=== PATIENT | female | born 1995 | race Caucasian/White ===

== ENCOUNTER 2016-12-17 18:29 | Emergency (ER) | payer OTHER ==
--- NOTE | 2016-12-17 19:12 | RADIOLOGY REPORT (SQ) ---
EXAM DESCRIPTION: ANKLE LEFT COMPLETE COMPLETED DATE/TIME: 12/17/2016 7:01 pm REASON FOR STUDY: pain COMPARISON: None. NUMBER OF VIEWS: Three views. TECHNIQUE: AP, lateral, and oblique radiographic images acquired of the left ankle. LIMITATIONS: None. FINDINGS: MINERALIZATION: Normal. BONES: No acute fracture or dislocation. No worrisome bone lesions. Minimal posterior and plantar c alcaneal spurring. JOINTS: No effusions. SOFT TISSUES: No soft tissue swelling. No foreign body. OTHER: No other significant finding. IMPRESSION: MINIMAL CALCANEAL SPURRING. NO ACUTE OSSEOUS ABNORMALITY. TECHNICAL DOCUMENTATION: JOB ID: [id number] [employer]- All Rights Reserved
--- NOTE | 2016-12-17 19:54 | ER Document Report ---
ED Extremity Problem, Lower - General Chief Complaint: Ankle Pain Stated Complaint: LEFT ANKLE PAIN Time Seen by Provider: 12/17/16 18:43 TRAVEL OUTSIDE OF THE [place] IN LAST 30 DAYS: No - HPI Patient complains to provider of: Pain Location: Ankle Occurred: Other - one month Onset/Duration: Persistent Quality of pain: Achy Severity: Moderate Context: Twisted - her ankle one month ago Recent injury: No Associated symptoms: denies: Chest pain, Chills, Dizzy, Fainting, Fever, [place] a crack, [place] a pop, Hurts to breath, Painful ambulation, Rapid heart rate, Seizure, Short of breath, Sweaty, Unable to bear weight, Weak, Other Exacerbated by: Walking Notes: has not been taking anything for pain - Related Data Allergies/Adverse Reactions: No Known Allergies Allergy (Verified 12/17/16 19:17) Home Medications: Current Home Medications Buspirone HCl [Buspirone HCl] 1 tab PO DAILY 12/17/16 [History] Duloxetine HCl [Cymbalta 20 Mg Capsule.Dr] 20 mg PO DAILY 12/17/16 [History] Zolpidem Tartrate [Ambien 5 mg Tablet] 1 tab PO DAILY PRN 12/17/16 [History] Past Medical History - Social History Smoking Status: Never Smoker Frequency of alcohol use: None Drug Abuse: None Family History: Reviewed & Not Pertinent Renal/ Medical History: Denies: Hx Peritoneal Dialysis Psychiatric Medical History: Reports: Hx Depression Past Surgical History: Reports: Hx Appendectomy, Hx Section, Hx Cholecystectomy Review of Systems - Review of Systems Constitutional: No symptoms reported Musculoskeletal: See HPI -: Yes All other systems reviewed and negative Physical Exam - Vital signs Vitals: Temp Pulse Resp BP Pulse Ox 98.6 F 96 16 134/77 H 98 12/17/16 18:31 12/17/16 18:31 12/17/16 18:31 12/17/16 18:31 12/17/16 18:31 - General General appearance: Appears well, Alert In distress: None - Cardiovascular Pulses: Normal: Posterior tibial, Dorsalis pedis Normal capillary refill: Yes - Extremities Calf: Normal, Nontender Ankle: Normal, Tender - medial and lateral malleoli. No: Abrasion, Deformity, Ecchymosis, Edema, Instability, Laceration, Limited ROM, Positive Lin's test, Unable to bear weight Foot: Normal, Nontender. No: Unable to bear weight - Neurological Neuro grossly intact: Yes Cognition: Normal Orientation: AAOx4 Sukumar Coma Scale Eye Opening: Spontaneous Sukumar Coma Scale Verbal: Oriented [place] Coma Scale Motor: Obeys Commands [place] Coma Scale Total: 15 - Skin Skin Temperature: Warm Skin Moisture: Dry Skin Color: Normal Course - Re-evaluation Re-evalutation: 12/17/16 20:57 Patient is a 21-year-old female presents with chronic ankle pain. No evidence of any fracture or dislocation. Extremity warm, and NVI, Patient told to follow -up with primary care. - Vital Signs Vital signs: Temp Pulse Resp BP Pulse Ox 98.8 F 93 18 106/63 98 12/17/16 20:01 12/17/16 20:01 12/17/16 20:01 12/17/16 20:01 12/17/16 20:01 - Diagnostic Test Radiology reviewed: Image reviewed, Reports reviewed Discharge - Discharge Clinical Impression: Ankle pain Qualifiers: Chronicity: chronic Laterality: left Qualified Code(s): M25.572 - Pain in left ankle and joints of left foot Condition: Good Disposition: HOME, SELF-CARE Instructions: Eagle Wrap (OM), Sprained Ankle (OM) Additional Instructions: Follow up with primary care
[2016-12-17 20:01] VITALS: BP 106/63
== END 2016-12-17 20:01 | disposition home or self-care (01) ==
LOC: ER 18:29
DX: M25.572 Pain in left ankle and joints of left foot (principal); Z90.49 Acquired absence of other specified parts of digestive tract
CPT/HCPCS: 99283

== ENCOUNTER 2016-12-23 11:21 | Emergency (ER) | payer OTHER ==
[2016-12-23 11:28] VITALS: BP 125/74
== END 2016-12-23 12:31 | disposition left against medical advice (07) ==
LOC: ER 11:21
DX: Z53.9 Procedure and treatment not carried out, unspecified reason (principal); R10.9 Unspecified abdominal pain